=== PATIENT | male | born 1950 | race Caucasian/White ===

== ENCOUNTER → 2019-11-04 08:25 | Outpatient (BNVA) | payer MEDICARE, OTHER, SELFPAY | PROVIDERS: Family Provider Nurse Practitioner; Referring Provider Nurse Practitioner; Visit Provider Specialist | DX: M25.559 Pain in unspecified hip (principal) | CPT/HCPCS: 73502 ==

== ENCOUNTER 2019-11-09 06:00 | Outpatient (RCR) | payer MEDICARE, OTHER, SELFPAY | END 2019-11-09 23:59 | disposition home or self-care (01) | LOC: MPT 06:00 | PROVIDERS: PCP Nurse Practitioner; Referring Provider Specialist; Visit Provider Specialist | DX: M25.551 Pain in right hip (principal) | CPT/HCPCS: 97140; 97161; 97530 ==

== ENCOUNTER 2019-11-11 | Outpatient (RCR) | payer MEDICARE, OTHER, SELFPAY | END 2019-11-22 23:00 | disposition home or self-care (01) | LOC: MPT | PROVIDERS: PCP Nurse Practitioner; Referring Provider Specialist; Visit Provider Specialist | DX: M25.551 Pain in right hip (principal) | CPT/HCPCS: 97110; 97140 ==

== ENCOUNTER 2020-12-20 18:24 | Observation (INO) | payer MEDICARE, OTHER, SELFPAY ==
[2020-12-20 18:46] VITALS: BP 122/79; PULSE 92; RESP 16; TEMP 36.5; O2SAT 96; BMI 25.2
--- NOTE | 2020-12-20 19:30 | ECG_ITS ---
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 Measurements Intervals [place] Rate: 78 P: 49 DE: 227 QRS: -35 QRSD: 102 T: 116 QT: 377 QTc: 432 Interpretive Statements SINUS RHYTHM WITH FIRST DEGREE AV BLOCK WITH OCCASIONAL VENTRICULAR PREMATURE COMPLEXES MARKED LEFT AXIS DEVIATION [QRS AXIS < -30] INCOMPLETE RIGHT BUNDLE BRANCH BLOCK [90+ ms QRS DURATION, TERMINAL R IN V1/V2, 40+ ms S IN I/aVL/V4/V5/V6] LEFT VENTRICULAR HYPERTROPHY AND ST-T CHANGE [VOLTAGE CRITERIA PLUS ST/T ABNORMALITY] POSSIBLE SEPTAL MYOCARDIAL INFARCTION [30 ms Q WAVE IN V1/V2], PROBABLY OLD No previous ECG available for comparison Electronically Signed On 12-21-2020 7:33:30 CDT by Keren Pineda M.D. [id number]
--- NOTE | 2020-12-20 19:48 | ED_ITS ---
HPI - General Adult General: Chief complaint: Abdominal Pain Stated complaint: abd pain, constipation Time Seen by Provider: 12/20/20 19:09 History of Present Illness: HPI narrative: Patient is a 70-year-old male with a history of diabetes, hypertension, prior appendectomy presenting to the emergency room with complaints of pressure like midepigastric/lower chest pain that shoots the R upper backx2 days at rest. In addition, patient also he has had only 2 episodes of small hard stools. Patient denies any melena or hematochezia. Patient has been taking milk of magnesia without any significant improvement in stooling. He denies any nausea, vomiting, decrease in flatus, or changes in p.o. intake. Patient denies any shortness of breath, exertional chest pain, vomiting, diaphoresis over the last 2 days. No history of smoking, recent sympathomimetic use, mopped assist, recent mobilization, surgeries, personal or family history of DVT/PE. Onset:2 days ago Duration:2 days Location:home Severity:mild/moderate Review of Systems Narrative: Constitutional: No fever, no chills. HEENT: No vision changes CV: +lower chest pain, no palpitations PULM: no cough, no dyspnea. GI: + midepigastric abdominal pain, no N/V/D. +constipation : No dysuria MSKEL: No muscle pain SKIN: No new rashes, no lesions. NEURO: No headache, no focal weakness. HEME: No visible bruises PSYCH: Normal mood PFSH ED PFSH: Medical History (Updated 12/21/20 @ 03:19 by Alexandr Roberts MD) Diabetes mellitus High cholesterol History of high blood pressure Surgical History History of appendectomy History of tonsillectomy Social History Smoking and tobacco status: former smoker Alcohol intake: current Alcohol intake frequency: holidays/special occasions only Physical Exam Narrative: EXAM NARRATIVE: Head: Atraumatic Eyes: PERRL, conjunctiva without injection ENT: Mucous membrane moist NECK: Supple, ROM intact LUNGS: LCTAB, no crackles/rhonchi CV: RRR ABDOMEN: Soft, no tenderness palpation the midepigastric area, no Bangura sign, no right upper quadrant tenderness, no CVA tenderness, no suprapubic tenderness, no guarding no rebound tenderness EXTREMITY: Normal ROM SKIN: No rash or erythema NEURO: Awake and alert, no focal motor deficits PSYCH: Normal mood and affect Course Vital Signs: Vital signs: Vital Signs Temperature 97.7 F 12/20/20 18:46 Pulse Rate 72 12/21/20 02:06 Respiratory Rate 14 12/21/20 01:52 Blood Pressure 154/92 12/21/20 01:52 Pulse Oximetry 95 12/21/20 01:52 MDM - General Adult MDM Narrative: Medical decision making narrative: Patient is a 70-year-old male with history of diabetes, hypertension, remote appendectomy presenting to the emergency room with complaints of midepigastric abdominal/lower chest pain and constipation x2 days. On exam, patient has mild tenderness to palpation over the mid epigastric area. EKG showed NSR, rate of 78, first-degree AV block, QRS/QT within normal limit, occasional PVC, no signs of ST-T wave changes, poor R wave progression, no prior EKG for comparison Has a heart score 5 today (age - 2, risks factors - 1, story - 1, EKG of 1). Initial troponin within normal limit. I have had a shared decision-making with patient who tells me that he would like to come in to the hospital for cardiac evaluation since his last stress test was 3 years ago. S/p aspirin and nitroglycerin in the ED. Disposition: Admission Lab Data: Labs: Lab Results 12/20/20 12/20/20 12/20/20 Range/Units 19:37 19:37 19:37 WBC 8.5 (4.0-10.0) 10^3/ uL RBC 5.43 H (4.1-5.3) 10^6/u L Hgb 16.2 (11.7-16.6) g/dL Hct 48.1 (42.0-52.0) % MCV 88.6 (80-94) fL MCH 29.8 (28.0-34.0) pg MCHC 33.7 (30.0-36.0) g/dL RDW 13.1 (12.1-15.1) % Plt Count 170 (130-400) 10^3/c mm MPV 10.9 H (7.4-10.4) fL Neut % (Auto) 71.9 % Lymph % (Auto) 15.6 % [place] % (Auto) 10.5 % Eos % (Auto) 1.1 % Baso % (Auto) 0.5 % Neut # (Auto) 6.08 (1.8-7.7) 10^3/u L Lymph # (Auto) 1.3 (0.8-4.8) 10^3/u L [place] # (Auto) 0.9 (0.2-0.9) 10^3/u L Eos # (Auto) 0.1 (0.0-0.8) 10^3/u L Baso # (Auto) 0.0 (0.0-0.1) 10^3/u L Nucleated RBC % (a uto) 0 % Nucleated RBCs # 0.0 /100WBC D-Dimer 0.53 (0-0.59) ug/mIFE U Sodium 137 (136-145) mmol/L Potassium 3.8 (3.5-5.1) mmol/L Chloride 100 (98-107) mmol/L Carbon Dioxide 25 (22-29) mmol/L Anion Gap 15.8 (5-19) BUN 17 (8-23) mg/dL Creatinine 1.2 (0.7-1.2) mg/dL GFR Calculation Not Reportable Glucose 230 H (65-115) mg/dL Estimat Average Gl ucose Hemoglobin A1c (4.0-6.0) % Calculated Osmolal ity 293 (285-295) mOsm/k g Calcium 9.3 (8.5-10.5) mg/dL Total Bilirubin 0.7 (0.15-1.2) mg/dL AST 12 (0-40) U/L ALT 18 (0-41) U/L Alkaline Phosphata se 47 (40-130) IU/L Troponin T Baselin e (0-15) ng/L Troponin T 120 Min [place] (0-15) ng/L Delta Troponin T (0-10) ABS# Total Protein 7.4 (6.6-8.7) g/dL Albumin 4.2 (3.5-5.2) g/dL Globulin 3.2 (1.3-4.6) g/dL Triglycerides (0-150) mg/dL Cholesterol (0-200) mg/dL LDL Cholesterol, C alc (50-129) mg/dL HDL Cholesterol (60-100) mg/dL LDL/HDL Ratio (0.00-3.22) RATI O Cholesterol/HDL Ra sabina (1.0-5.00) mg/dL Lipase 102 H (13-60) U/L Urine Color (Yellow) Urine Appearance (CLEAR) Urine pH (5-7) Ur Specific Gravit y (1.005-1.030) Urine Protein (Negative) Urine Glucose (UA) (Normal) Urine Ketones (Negative) Urine Blood (Negative) Urine Nitrate (Negative) Urine Bilirubin (Negative) Urine Urobilinogen (Negative) mg/dL Ur Leukocyte Eleonora ase (Negative) SARS-CoV-2 Ag (Rap id) (Negative) 12/20/20 12/20/20 12/20/20 Range/Units 19:37 21:04 21:40 WBC (4.0-10.0) 10^3/ uL RBC (4.1-5.3) 10^6/u L Hgb (11.7-16.6) g/dL Hct (42.0-52.0) % MCV (80-94) fL MCH (28.0-34.0) pg MCHC (30.0-36.0) g/dL RDW (12.1-15.1) % Plt Count (130-400) 10^3/c mm MPV (7.4-10.4) fL Neut % (Auto) % Lymph % (Auto) % [place] % (Auto) % Eos % (Auto) % Baso % (Auto) % Neut # (Auto) (1.8-7.7) 10^3/u L Lymph # (Auto) (0.8-4.8) 10^3/u L [place] # (Auto) (0.2-0.9) 10^3/u L Eos # (Auto) (0.0-0.8) 10^3/u L Baso # (Auto) (0.0-0.1) 10^3/u L Nucleated RBC % (a uto) % Nucleated RBCs # /100WBC D-Dimer (0-0.59) ug/mIFE U Sodium (136-145) mmol/L Potassium (3.5-5.1) mmol/L Chloride (98-107) mmol/L Carbon Dioxide (22-29) mmol/L Anion Gap (5-19) BUN (8-23) mg/dL Creatinine (0.7-1.2) mg/dL GFR Calculation Glucose (65-115) mg/dL Estimat Average Gl ucose 189 Hemoglobin A1c 8.2 H (4.0-6.0) % Calculated Osmolal ity (285-295) mOsm/k g Calcium (8.5-10.5) mg/dL Total Bilirubin (0.15-1.2) mg/dL AST (0-40) U/L ALT (0-41) U/L Alkaline Phosphata se (40-130) IU/L Troponin T Baselin e 15 (0-15) ng/L Troponin T 120 Min [place] 15.79 H (0-15) ng/L Delta Troponin T 0.79 (0-10) ABS# Total Protein (6.6-8.7) g/dL Albumin (3.5-5.2) g/dL Globulin (1.3-4.6) g/dL Triglycerides (0-150) mg/dL Cholesterol (0-200) mg/dL LDL Cholesterol, C alc (50-129) mg/dL HDL Cholesterol (60-100) mg/dL LDL/HDL Ratio (0.00-3.22) RATI O Cholesterol/HDL Ra sabina (1.0-5.00) mg/dL Lipase (13-60) U/L Urine Color (Yellow) Urine Appearance (CLEAR) Urine pH (5-7) Ur Specific Gravit y (1.005-1.030) Urine Protein (Negative) Urine Glucose (UA) (Normal) Urine Ketones (Negative) Urine Blood (Negative) Urine Nitrate (Negative) Urine Bilirubin (Negative) Urine Urobilinogen (Negative) mg/dL Ur Leukocyte Eleonora ase (Negative) SARS-CoV-2 Ag (Rap id) (Negative) 12/20/20 12/20/20 12/21/20 Range/Units 21:40 22:55 00:33 WBC (4.0-10.0) 10^3/ uL RBC (4.1-5.3) 10^6/u L Hgb (11.7-16.6) g/dL Hct (42.0-52.0) % MCV (80-94) fL MCH (28.0-34.0) pg MCHC (30.0-36.0) g/dL RDW (12.1-15.1) % Plt Count (130-400) 10^3/c mm MPV (7.4-10.4) fL Neut % (Auto) % Lymph % (Auto) % [place] % (Auto) % Eos % (Auto) % Baso % (Auto) % Neut # (Auto) (1.8-7.7) 10^3/u L Lymph # (Auto) (0.8-4.8) 10^3/u L [place] # (Auto) (0.2-0.9) 10^3/u L Eos # (Auto) (0.0-0.8) 10^3/u L Baso # (Auto) (0.0-0.1) 10^3/u L Nucleated RBC % (a uto) % Nucleated RBCs # /100WBC D-Dimer (0-0.59) ug/mIFE U Sodium (136-145) mmol/L Potassium (3.5-5.1) mmol/L Chloride (98-107) mmol/L Carbon Dioxide (22-29) mmol/L Anion Gap (5-19) BUN (8-23) mg/dL Creatinine (0.7-1.2) mg/dL GFR Calculation Glucose (65-115) mg/dL Estimat Average Gl ucose Hemoglobin A1c (4.0-6.0) % Calculated Osmolal ity (285-295) mOsm/k g Calcium (8.5-10.5) mg/dL Total Bilirubin (0.15-1.2) mg/dL AST (0-40) U/L ALT (0-41) U/L Alkaline Phosphata se (40-130) IU/L Troponin T Baselin e (0-15) ng/L Troponin T 120 Min [place] (0-15) ng/L Delta Troponin T (0-10) ABS# Total Protein (6.6-8.7) g/dL Albumin (3.5-5.2) g/dL Globulin (1.3-4.6) g/dL Triglycerides 102 (0-150) mg/dL Cholesterol 136 (0-200) mg/dL LDL Cholesterol, C alc 72 (50-129) mg/dL HDL Cholesterol 44 L (60-100) mg/dL LDL/HDL Ratio 1.64 (0.00-3.22) RATI O Cholesterol/HDL Ra sabina 3.09 (1.0-5.00) mg/dL Lipase (13-60) U/L Urine Color Yellow (Yellow) Urine Appearance Clear (CLEAR) Urine pH 5 (5-7) Ur Specific Gravit y 1.015 (1.005-1.030) Urine Protein Neg (Negative) Urine Glucose (UA) 4+ H (Normal) Urine Ketones Negative (Negative) Urine Blood Neg (Negative) Urine Nitrate Negative (Negative) Urine Bilirubin Neg (Negative) Urine Urobilinogen Norm (Negative) mg/dL Ur Leukocyte Eleonora ase Negative (Negative) SARS-CoV-2 Ag (Rap id) Negative (Negative) Discharge Plan Discharge Patient Disposition: Admitted As Inpatient Admit Provider: Vivian Ahumada Clinical Impression: Chest pain, Constipation Condition: Stable Coding Level of Care Code ED [employer] for Lakia Sommer
[2020-12-20 19:59] LABS: Basophils % 0.5 %; Eosinophils # 0.1 10^3/uL (0.0-0.8); Eosinophils % 1.1 %; Hematocrit 48.1 % (42.0-52.0); Hemoglobin 16.2 g/dL (11.7-16.6); Lymphocytes # 1.3 10^3/uL (0.8-4.8); Lymphocytes % 15.6 %; Mean Corpuscular HGB Conc 33.7 g/dL (30.0-36.0); Mean Corpuscular Hemoglobin 29.8 pg (28.0-34.0); Mean Corpuscular Volume 88.6 fL (80-94); Mean Platelet Volume 10.9 fL (7.4-10.4); Monocytes # 0.9 10^3/uL (0.2-0.9); Monocytes % 10.5 %; Neutrophils # 6.08 10^3/uL (1.8-7.7); Neutrophils % 71.9 %; Nucleated Red Blood Cells % 0 %; Platelet Count 170 10^3/cmm (130-400); Red Blood Count 5.43 10^6/uL (4.1-5.3); Red Cell Distribution Width 13.1 % (12.1-15.1); White Blood Count 8.5 10^3/uL (4.0-10.0)
[2020-12-20 20:16] LABS: Alanine Aminotransferase 18 U/L (0-41); Albumin Level 4.2 g/dL (3.5-5.2); Alkaline Phosphatase 47 IU/L (40-130); Anion Gap 15.8 (5-19); Aspartate Amino Transferase 12 U/L (0-40); Blood Urea Nitrogen 17 mg/dL (8-23); Calcium 9.3 mg/dL (8.5-10.5); Carbon Dioxide 25 mmol/L (22-29); Chloride 100 mmol/L (98-107); Globulin 3.2 g/dL (1.3-4.6); Glucose 230 mg/dL (65-115); Lipase 102 U/L (13-60); Osmolality Calculated 293 mOsm/kg (285-295); Potassium 3.8 mmol/L (3.5-5.1); Sodium 137 mmol/L (136-145); Total Bilirubin 0.7 mg/dL (0.15-1.2); Total Protein 7.4 g/dL (6.6-8.7)
--- NOTE | 2020-12-20 20:26 | XRR_ITS ---
PROCEDURE INFORMATION: Exam: XR Chest Exam date and time: 12/20/2020 8:26 PM Age: 70 years old Clinical indication: Pain; Other: Epigastric; Additional info: Chest pain, epigastric pain. Ex smoker. TECHNIQUE: Imaging protocol: XR of the chest. Views: 1 view. COMPARISON: CR Chest 2 views* [id number] 05/08/2017 11:26 AM FINDINGS: Lungs: Unremarkable. No consolidation. Pleural spaces: Unremarkable. No pleural effusion. No pneumothorax. Heart/Mediastinum: Unremarkable. No cardiomegaly. Bones/joints: Unremarkable. XR/XR chest 1V portable [id number] IMPRESSION: No acute findings.
[2020-12-20] MEDS: alum-mag-hydroxide-sime 30 mL UDC PO (20:36)
[2020-12-20] MEDS: aspirin 81 mg Chew Tablet 324 MG PO (20:36)
[2020-12-20] MEDS: famotidine 20 mg Tablet PO (20:37)
[2020-12-20] MEDS: nitroglycerin 0.4 mg sublingual Tablet SUBLINGUAL (20:39)
[2020-12-20 20:40] VITALS: BP 165/102; PULSE 60; RESP 16; O2SAT 99
[2020-12-20 21:17] LABS: D Dimer 0.53 ug/mIFEU (0-0.59)
--- NOTE | 2020-12-20 21:30 | ECG_ITS ---
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 Measurements Intervals [place] Rate: 68 P: 62 OR: 238 QRS: -34 QRSD: 101 T: 126 QT: 380 QTc: 406 Interpretive Statements SINUS RHYTHM WITH FIRST DEGREE AV BLOCK WITH OCCASIONAL VENTRICULAR PREMATURE COMPLEXES MARKED LEFT AXIS DEVIATION [QRS AXIS < -30] INCOMPLETE RIGHT BUNDLE BRANCH BLOCK [90+ ms QRS DURATION, TERMINAL R IN V1/V2, 40+ ms S IN I/aVL/V4/V5/V6] LEFT VENTRICULAR HYPERTROPHY AND ST-T CHANGE [VOLTAGE CRITERIA PLUS ST/T ABNORMALITY] POSSIBLE SEPTAL MYOCARDIAL INFARCTION [30 ms Q WAVE IN V1/V2], PROBABLY OLD Compared to ECG 12/20/2020 19:35:51 No significant changes Electronically Signed On 12-21-2020 9:59:51 CDT by Keren Pineda M.D. [id number]
[2020-12-20 21:43] LABS: Troponin(5th) Baseline 15 ng/L (0-15)
[2020-12-20] MEDS: acetaminophen 500 mg Tablet PO (21:49)
[2020-12-20 21:54] VITALS: BP 141/75; PULSE 62; RESP 16; O2SAT 96
[2020-12-20 22:20] LABS: Troponin 5 2HR 15.79 ng/L (0-15); Troponin 5 2HR Delta 0.79 ABS# (0-10)
--- NOTE | 2020-12-20 22:38 | ECG_ITS ---
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 Interpretive Statements NAME OF STUDY: LEXISCAN SESTAMIBI STRESS TEST INDICATION: Chest Pain; Angina PROCEDURE: At the baseline, the blood pressure was 150/90 mmHg, oxygen saturation 96% with a heart rate of 80 bpm. The electrocardiogram showed normal sinus rhythm, normal axis. Possible old septal infarct. Nonspecific ST-T wave changes in lead I and aVL. The Lexiscan was infused over a period of 20 seconds. A total of 0.4 milligrams of Lexiscan was infused. The stress phase was continued for a total of 5 minutes. Heart rate at the end of the stress phase was 86 bpm, oxygen saturation 95% with a blood pressure 135/73 mmHg. The EKG at the peak infusion revealed sinus rhythm with isolated PVCs. The study was terminated due to protocol completion. Sestamibi was injected 20 seconds after the Lexiscan infusion. Blood pressure at the end of the recovery phase was 140/74 mmHg, oxygen saturation 95% with a heart rate of 82 beats per minute. CONCLUSION: 1. No significant EKG changes with the LexiScan infusion 2. No LexiScan induced chest pain. Frequent isolated PVCs noted during Lexiscan infusion and in recovery. 3. Baseline hypertension with normal blood pressure and heart rate response. 4. Sestamibi/sestamibi perfusion scan pending; see separate report. Electronically Signed On 12-21-2020 13:39:26 CDT by Keren Pineda M.D. [id number]
[2020-12-20] MEDS: zolpidem 5 mg Tablet 10 MG PO (22:52)
[2020-12-20 22:53] VITALS: BP 151/87; PULSE 62; RESP 14; O2SAT 95
[2020-12-20 22:59] LABS: Chol HDL Ratio 3.09 mg/dL (1.0-5.00); Cholesterol 136 mg/dL (0-200); HDL Cholesterol 44 mg/dL (60-100); LDL Cholesterol Calculated 72 mg/dL (50-129); LDL HDL Ratio 1.64 RATIO (0.00-3.22); Triglycerides 102 mg/dL (0-150)
[2020-12-20 22:59] LABS: Estmated Average Glucose 189; Hemoglobin A1C 8.2 % (4.0-6.0)
[2020-12-20 23:15] LABS: Add Urine Microscopic? NO; Charge for UA Resulting for Rev
[2020-12-20 23:24] LABS: Bilirubin Urine Neg (Negative); Blood Urine Neg (Negative); Glucose Urine UA 4+ (Normal); Ketones Urine Negative (Negative); Leukocyte Esterase Urine Negative (Negative); Nitrate Urine Negative (Negative); Protein Urine Neg (Negative); Specific Gravity, Urine 1.015 (1.005-1.030); Urine Appearance Clear (CLEAR); Urine Color Yellow (Yellow); Urobilinogen Urine Norm (Negative); pH Urine 5 (5-7)
[2020-12-21] VITALS (11 sets, daily range): BP systolic 132–183; BP diastolic 70–92; PULSE 56–97; RESP 12–18; TEMP 36.5–36.7; O2SAT 94–96; BMI 25.2
[2020-12-21 00:58] LABS: SARS Covid-2 Antigen Negative (Negative)
[2020-12-21 03:36] LABS: Basophils # 0.1 10^3/uL (0.0-0.1); Basophils % 0.5 %; Eosinophils # 0.2 10^3/uL (0.0-0.8); Eosinophils % 1.6 %; Hematocrit 49.6 % (42.0-52.0); Hemoglobin 16.2 g/dL (11.7-16.6); Lymphocytes # 1.6 10^3/uL (0.8-4.8); Lymphocytes % 16.6 %; Mean Corpuscular HGB Conc 32.7 g/dL (30.0-36.0); Mean Corpuscular Hemoglobin 29.6 pg (28.0-34.0); Mean Corpuscular Volume 90.5 fL (80-94); Mean Platelet Volume 10.6 fL (7.4-10.4); Monocytes # 1.1 10^3/uL (0.2-0.9); Monocytes % 11.1 %; Neutrophils # 6.65 10^3/uL (1.8-7.7); Nucleated Red Blood Cells % 0 %; Platelet Count 155 10^3/cmm (130-400); Red Blood Count 5.48 10^6/uL (4.1-5.3); Red Cell Distribution Width 13.1 % (12.1-15.1); White Blood Count 9.5 10^3/uL (4.0-10.0)
[2020-12-21 03:59] LABS: Anion Gap 15.2 (5-19); Blood Urea Nitrogen 18 mg/dL (8-23); Calcium 9.6 mg/dL (8.5-10.5); Carbon Dioxide 24 mmol/L (22-29); Chloride 102 mmol/L (98-107); Glucose 143 mg/dL (65-115); Osmolality Calculated 288 mOsm/kg (285-295); Potassium 4.2 mmol/L (3.5-5.1); Sodium 137 mmol/L (136-145)
--- NOTE | 2020-12-21 04:33 | P.HP_ITS ---
Providers/Chief Complaint Admitting Physician: Vivian Ahumada MD Primary Care Provider: Odalys Haney NP Chief Complaint: Abd Pain, No BM History of Present Illness Moustapha Marks is a 70 year old male With past medical history of diabetes mellitus, hypertension, hyperlipidemia migraine presented to the ER today with chief complaints of abdominal pain, described in the epigastric region, radiating into the right side of the chest and shoulder blade. Patient has not noticed any obvious exacerbating or relieving factors. Feels it is a dull aching kind of pain which is intermittent. Initially he attributed his symptoms to being constipated. He is passing flatus. He has an appetite. Denies any nausea vomiting. Denies any associated symptoms such as diaphoresis, dyspnea, syncope. He has had a stress test 3 years ago at [facility] in [place] which was reportedly normal. Denies any past history of CAD. Review of Systems General: Reports: 10 or more systems reviewed and unremarkable except in HPI and below Const: Denies: fever(s), chills or body aches Eyes: Denies: change in vision, blurry vision or photophobia ENMT: Reports: hoarseness; Denies: throat pain, enlarged tonsils, odynophagia or nasal congestion Card: Denies: chest pain, palpitations, irregular heart rhythm, edema, swelling of feet/ankles, lightheadedness, pre-syncope, dyspnea on exertion or orthopnea Resp: Denies: dyspnea, productive cough, non-productive cough, wheezing, stridor, pain on inspiration, change in phlegm color, hemoptysis or chest congestion GI: Denies: abdominal pain, nausea, vomiting, hematemesis, coffee ground emesis, dysphagia, heartburn, diarrhea, constipation, GI cramping, change in stool character, hematochezia or melena : Denies: flank pain, dysuria, urinary frequency, urinary urgency, urinary hesitancy or hematuria Musc: Denies: neck pain, back pain, extremity pain, joint swelling, joint warmth or deformity Neuro: Denies: headache(s), numbness in extremities, weakness in extremities, sensory changes, difficulty walking, frequent falls, dizziness, vertigo, behavioral changes, Slurred speech present or seizure-like activity Psych: Denies: anxiety, depression, suicidal ideation or homicidal ideation Endo: Denies: polyuria, polydipsia, tired all the time, cold intolerance or hot flashes Wan/Lymph: Denies: easy bruising or easy bleeding Medications/Allergies Home Medications Medication Instructions Recorded Confirmed Last Taken Type aspirin 81 mg tablet,delayed 81 mg PO DAILY 11/04/19 12/20/20 12/20/20 History release canagliflozin 100 mg tablet 100 mg PO DAILY 11/04/19 12/20/20 12/20/20 History cetirizine 10 mg capsule 10 mg PO DAILY PRN 11/04/19 12/20/20 Unknown History cholecalciferol (vitamin D3) 50 50 mcg PO DAILY 11/04/19 12/20/20 12/19/20 History mcg (2,000 unit) capsule cyanocobalamin (vitamin B-12) 3,000 mcg PO DAILY 11/04/19 12/20/20 12/20/20 History 3,000 mcg capsule cyclobenzaprine 5 mg tablet 5 mg PO TID PRN 11/04/19 12/20/20 Unknown History diphenhydramine HCl 25 mg tablet 25 mg PO TID PRN 11/04/19 12/20/20 Unknown History fenofibrate 160 mg tablet 160 mg PO DAILY 11/04/19 12/20/20 12/19/20 History glipizide 10 mg tablet 10 mg PO DAILY 11/04/19 12/20/20 12/19/20 History olmesartan 40 mg tablet 40 mg PO DAILY 11/04/19 12/20/20 12/20/20 History pantoprazole 40 mg tablet,delayed 40 mg PO DAILY 11/04/19 12/20/20 12/20/20 History release sitagliptin 100 mg tablet 100 mg PO DAILY 11/04/19 12/20/20 12/20/20 History sumatriptan succinate 100 mg tablet 100 mg PO Q2H PRN 11/04/19 12/20/20 Unknown History tamsulosin 0.4 mg capsule 0.4 mg PO DAILY 11/04/19 12/20/20 12/20/20 History triamcinolone acetonide 55 mcg 1 spray INTRANASAL DAILY 11/04/19 12/20/20 Unknown History nasal spray aerosol zolpidem 5 mg tablet 10 mg PO BEDTIME MDD see pharmacy 11/04/19 12/20/20 12/19/20 History comment glipizide 2.5 mg PO DAILY MDD see pharmacy 12/20/20 12/20/20 12/20/20 History comment rosuvastatin [Crestor] 20 mg PO DAILY 12/20/20 12/20/20 12/19/20 History Allergies Allergy/AdvReac Type Severity Reaction Status Date / Time clindamycin Allergy itch Verified 11/04/19 08:38 erythromycin base Allergy Unknown Verified 11/04/19 08:38 niacin Allergy Unknown Verified 11/04/19 08:38 oxycodone Allergy Unknown Verified 11/04/19 08:38 propoxyphene [From Darvon] Allergy Unknown Verified 11/04/19 08:38 PFSH Acute PFSH: Medical History Diabetes mellitus High cholesterol History of high blood pressure Surgical History (Updated 12/21/20 @ 04:40 by Vivian Ahumada MD) H/O sinus surgery History of appendectomy History of tonsillectomy Social History Smoking and tobacco status: former smoker Alcohol intake: current Alcohol intake frequency: holidays/special occasions only Vitals/I&O/Wt Last Vital Signs Temp 97.8 F 12/21/20 02:35 Pulse 67 12/21/20 02:35 Resp 18 12/21/20 02:35 BP 183/86 12/21/20 02:35 Pulse Ox 95 12/21/20 02:35 Weight last 48 hrs Weight 93.894 kg Weight 93.894 kg Physical Exam Narrative: EXAM NARRATIVE: General: No acute distress, AO x3 HEENT: PERRLA, pupils bilaterally equal and reactive, pallors not present Chest: Normal vesicular breath sounds, no added sounds, equal good air entry bilaterally CVS: S1-S2 regular, no murmurs, no tachycardia, no gallops, no rubs Abdomen: Soft, nondistended, mild TTP over epigastric region, no organomegaly, bowel sounds present Neuro: No focal deficits, no facial deformity, AO x3, power 5/5 in all limbs Data : 12/21/20 03:10 12/21/20 03:10 A&P Assessment and plan (1) Chest pain: Atypical chest pain, improved with sublingual nitro in the ER EKG without acute ST-T wave changes, left axis deviation and signs of LVH. Troponin baseline 15, 2-hour without significant delta. Pending 6-hour delta. Multiple risk factors for CAD including diabetes mellitus, hypertension, dyslipidemia Concern for underlying unstable angina as a cause of patient's chest and pain, will order stress test for the a.m. Further course dependent on results of stress test Alternate differentials for pain include peptic ulcer disease Status: Acute Additional A&P Information Diabetes mellitus: Can continue home oral hypoglycemic agents for now Hypertension: Currently well controlled, continue olmesartan Attestations Medical Necessity Statement*: Observation admission for stress test in the morning, n.p.o. for the same Coding Level of Care Code Acute [employer] for Lakia Sommer Diagnoses Chest pain R07.9
[2020-12-21 05:03] LABS: Troponin T (5th) Once 16 ng/L (0-15)
--- NOTE | 2020-12-21 05:22 | PC.NURSE ---
Shift Note Frequent safety and comfort rounds continue. Orders and/or nursing care completed as indicated. Patient monitored for response to intervention and treatment(s). Education provided includes pre-procedure prep foe stress test, npo status except for water. Patient verbalized understanding. Will continue to monitor.
[2020-12-21] MEDS: regadenoson 0.4 Mg/5 ml Syringe IVP (08:02)
[2020-12-21] MEDS: sitagliptin 100 mg Tablet PO (10:21)
[2020-12-21] MEDS: losartan 50 mg Tablet 100 MG PO (10:21)
[2020-12-21] MEDS: aspirin 81 mg EC Tablet PO (10:21)
[2020-12-21] MEDS: tamsulosin 0.4 mg Capsule PO (10:22)
--- NOTE | 2020-12-21 13:54 | PM.DCS ---
Discharge Providers Date of Admission: 12/21/20 01:36 Date of Discharge: December 21, 2020 Attending Provider at Admission: Vivian Ahumada MD Attending Provider at Discharge: Gladys Medina MD Primary Care Provider: Odalys Haney NP Diagnoses at Discharge Discharge Diagnosis (1) Chest pain: Status: Acute Reason for Visit Reason for Visit: Abd Pain, No BM Hospital Course Hospital Course HPI: Moustapha Marks is a 70 year old male With past medical history of diabetes mellitus, hypertension, hyperlipidemia migraine presented to the ER today with chief complaints of abdominal pain, described in the epigastric region, radiating into the right side of the chest and shoulder blade. Patient has not noticed any obvious exacerbating or relieving factors. Feels it is a dull aching kind of pain which is intermittent. Initially he attributed his symptoms to being constipated. He is passing flatus. He has an appetite. Denies any nausea vomiting. Denies any associated symptoms such as diaphoresis, dyspnea, syncope. He has had a stress test 3 years ago at [facility] in [place] which was reportedly normal. Denies any past history of CAD. Hospital course Patient was admitted for evaluation of atypical chest pain, considering moderate risk factors for coronary disease cardiac stress test was pursued. Cardiac stress test was read by Dr. Pineda as unremarkable. He will be discharged today without addition or change of his medications. He received senna S for his constipation during hospitalization. He never experienced recurrence of his chest pain, or abdominal pain. He stayed hemodynamically stable. He was asked to follow-up with his PCP Lexiscan stress test PERFUSION FINDINGS Medium size perfusion abnormality of mild severity of basal to apical inferior, basal to mid inferolateral, basal to mid inferoseptal and apical abbott on rest images with improved tracer uptake in inferior septal and lateral abbott on stress images. This is suggestive of attenuation artifact. FUNCTIONAL RESULTS (calculated via Gated SPECT) Stress Image LV EF (%): 67 Stress EDV (mL):88 TID: 1.08 Stress ESV (mL):29 FUNCTIONAL FINDINGS: The left ventricle is normal in size. Transient Ischemia Dilatation of 1.1. There is normal left ventricular systolic function. The left ventricular ejection fraction is normal with a value of 67%. There is normal left ventricular wall thickening with no regional wall motion abnormality. Normal end-diastolic end-systolic volume. IMPRESSIONS 1. Myocardial perfusion imaging is normal. Attenuation artifact noted in inferior inferoseptal and inferolateral abbott. 2. Overall left ventricular systolic function is normal without regional wall motion abnormalities, LVEF=67%. 3. No coronary ischemia based on the study. Blood pressure at the end of the recovery phase was 140/74 mmHg, oxygen saturation 95% with a heart rate of 82 beats per minute. CONCLUSION: 1. No significant EKG changes with the LexiScan infusion 2. No LexiScan induced chest pain. Frequent isolated PVCs noted during Lexiscan infusion and in recovery. 3. Baseline hypertension with normal blood pressure and heart rate response. 4. Sestamibi/sestamibi perfusion scan pending; see separate report. Physical Exam Narrative: EXAM NARRATIVE: General: No acute distress, AO x3 HEENT: PERRLA, pupils bilaterally equal and reactive, pallors not present Chest: Normal vesicular breath sounds, no added sounds, equal good air entry bilaterally CVS: S1-S2 regular, no murmurs, no tachycardia, no gallops, no rubs Abdomen: Soft, nondistended, mild TTP over epigastric region, no organomegaly, bowel sounds present Neuro: No focal deficits, no facial deformity, AO x3, power 5/5 in all limbs Discharge Data Data Completed and Pending: Completed Studies During Hospitalization Category Date Time Status Sestamibi Stress Test Request Kirt ne Exams 12/20/20 22:38 Completed XR chest 1V jeffrey ble [id number] Stat Exams 12/20/20 20:26 Completed NM michelle perf SPECT r/s* [id number] Routin e Nuc Med 12/21/20 22:38 Completed Labs from last 24 hours 12/21/20 12/21/20 12/21/20 03:10 03:10 03:10 WBC 9.5 RBC 5.48 H Hgb 16.2 Hct 49.6 MCV 90.5 MCH 29.6 MCHC 32.7 RDW 13.1 Plt Count 155 MPV 10.6 H Neut % (Auto) 70.0 Lymph % (Auto) 16.6 [place] % (Auto) 11.1 Eos % (Auto) 1.6 Baso % (Auto) 0.5 Neut # (Auto) 6.65 Lymph # (Auto) 1.6 [place] # (Auto) 1.1 H Eos # (Auto) 0.2 Baso # (Auto) 0.1 Nucleated RBC % (a uto) 0 Nucleated RBCs # 0.0 D-Dimer Sodium 137 Potassium 4.2 Chloride 102 Carbon Dioxide 24 Anion Gap 15.2 BUN 18 Creatinine 1.0 GFR Calculation Not Reportable Glucose 143 H Estimat Average Gl ucose Hemoglobin A1c Calculated Osmolal ity 288 Calcium 9.6 Total Bilirubin AST ALT Alkaline Phosphata se Troponin T Gen 5 n g/L 16 H Troponin T Baselin e Troponin T 120 Min [place] Troponin T Total Protein Albumin Globulin Triglycerides Cholesterol LDL Cholesterol, C alc HDL Cholesterol LDL/HDL Ratio Cholesterol/HDL Ra sabina Lipase Urine Color Urine Appearance Urine pH Ur Specific Gravit y Urine Protein Urine Glucose (UA) Urine Ketones Urine Blood Urine Nitrate Urine Bilirubin Urine Urobilinogen Ur Leukocyte Eleonora ase SARS-CoV-2 Ag (Rap id) 12/21/20 12/20/20 12/20/20 00:33 22:55 21:40 WBC RBC Hgb Hct MCV MCH MCHC RDW Plt Count MPV Neut % (Auto) Lymph % (Auto) [place] % (Auto) Eos % (Auto) Baso % (Auto) Neut # (Auto) Lymph # (Auto) [place] # (Auto) Eos # (Auto) Baso # (Auto) Nucleated RBC % (a uto) Nucleated RBCs # D-Dimer Sodium Potassium Chloride Carbon Dioxide Anion Gap BUN Creatinine GFR Calculation Glucose Estimat Average Gl ucose Hemoglobin A1c Calculated Osmolal ity Calcium Total Bilirubin AST ALT Alkaline Phosphata se Troponin T Gen 5 n g/L Troponin T Baselin e Troponin T 120 Min [place] Troponin T Total Protein Albumin Globulin Triglycerides 102 Cholesterol 136 LDL Cholesterol, C alc 72 HDL Cholesterol 44 L LDL/HDL Ratio 1.64 Cholesterol/HDL Ra sabina 3.09 Lipase Urine Color Yellow Urine Appearance Clear Urine pH 5 Ur Specific Gravit y 1.015 Urine Protein Neg Urine Glucose (UA) 4+ H Urine Ketones Negative Urine Blood Neg Urine Nitrate Negative Urine Bilirubin Neg Urine Urobilinogen Norm Ur Leukocyte Eleonora ase Negative SARS-CoV-2 Ag (Rap id) Negative 12/20/20 12/20/20 12/20/20 21:40 21:04 19:37 WBC RBC Hgb Hct MCV MCH MCHC RDW Plt Count MPV Neut % (Auto) Lymph % (Auto) [place] % (Auto) Eos % (Auto) Baso % (Auto) Neut # (Auto) Lymph # (Auto) [place] # (Auto) Eos # (Auto) Baso # (Auto) Nucleated RBC % (a uto) Nucleated RBCs # D-Dimer Sodium Potassium Chloride Carbon Dioxide Anion Gap BUN Creatinine GFR Calculation Glucose Estimat Average Gl ucose 189 Hemoglobin A1c 8.2 H Calculated Osmolal ity Calcium Total Bilirubin AST ALT Alkaline Phosphata se Troponin T Gen 5 n g/L Troponin T Baselin e 15 Troponin T 120 Min [place] 15.79 H Delta Troponin T 0.79 Total Protein Albumin Globulin Triglycerides Cholesterol LDL Cholesterol, C alc HDL Cholesterol LDL/HDL Ratio Cholesterol/HDL Ra sabina Lipase Urine Color Urine Appearance Urine pH Ur Specific Gravit y Urine Protein Urine Glucose (UA) Urine Ketones Urine Blood Urine Nitrate Urine Bilirubin Urine Urobilinogen Ur Leukocyte Eleonora ase SARS-CoV-2 Ag (Rap id) 12/20/20 12/20/20 12/20/20 19:37 19:37 19:37 WBC 8.5 RBC 5.43 H Hgb 16.2 Hct 48.1 MCV 88.6 MCH 29.8 MCHC 33.7 RDW 13.1 Plt Count 170 MPV 10.9 H Neut % (Auto) 71.9 Lymph % (Auto) 15.6 [place] % (Auto) 10.5 Eos % (Auto) 1.1 Baso % (Auto) 0.5 Neut # (Auto) 6.08 Lymph # (Auto) 1.3 [place] # (Auto) 0.9 Eos # (Auto) 0.1 Baso # (Auto) 0.0 Nucleated RBC % (a uto) 0 Nucleated RBCs # 0.0 D-Dimer 0.53 Sodium 137 Potassium 3.8 Chloride 100 Carbon Dioxide 25 Anion Gap 15.8 BUN 17 Creatinine 1.2 GFR Calculation Not Reportable Glucose 230 H Estimat Average Gl ucose Hemoglobin A1c Calculated Osmolal ity 293 Calcium 9.3 Total Bilirubin 0.7 AST 12 ALT 18 Alkaline Phosphata se 47 Troponin T Gen 5 n g/L Troponin T Baselin e Troponin T 120 [address] [place] Troponin T Total Protein 7.4 Albumin 4.2 Globulin 3.2 Triglycerides Cholesterol LDL Cholesterol, C alc HDL Cholesterol LDL/HDL Ratio Cholesterol/HDL Ra sabina Lipase 102 H Urine Color Urine Appearance Urine pH Ur Specific Gravit y Urine Protein Urine Glucose (UA) Urine Ketones Urine Blood Urine Nitrate Urine Bilirubin Urine Urobilinogen Ur Leukocyte Eleonora ase SARS-CoV-2 Ag (Rap id) Vitals: Last Vital Signs Temp 97.7 F 12/21/20 13:23 Pulse 71 12/21/20 13:23 Resp 16 12/21/20 13:23 BP 142/76 12/21/20 13:23 Pulse Ox 94 12/21/20 13:23 Discharge Plan Discharge Patient Disposition: Home Condition: Stable Prescriptions: Continued pantoprazole 40 mg tablet,delayed release (DR/EC) 40 mg PO DAILY RF: 0 tamsulosin 0.4 mg capsule 0.4 mg PO DAILY RF: 0 aspirin 81 mg tablet,delayed release (DR/EC) 81 mg PO DAILY RF: 0 olmesartan [Benicar] 40 mg tablet 40 mg PO DAILY RF: 0 triamcinolone acetonide 55 mcg aerosol,spray 1 spray INTRANASAL DAILY RF: 0 sumatriptan succinate 100 mg tablet 100 mg PO Q2H PRN (Reason: Migraine Headache) RF: 0 cetirizine 10 mg capsule 10 mg PO DAILY PRN (Reason: Allergy Symptoms) RF: 0 Januvia 100 mg tablet 100 mg PO DAILY RF: 0 glipizide 10 mg tablet 10 mg PO DAILY RF: 0 diphenhydramine HCl [Benadryl Allergy] 25 mg tablet 25 mg PO TID PRN (Reason: Allergic Reaction) RF: 0 cyanocobalamin (vitamin B-12) 3,000 mcg capsule 3,000 mcg PO DAILY RF: 0 cholecalciferol (vitamin D3) 50 mcg (2,000 unit) capsule 50 mcg PO DAILY RF: 0 Invokana 100 mg tablet 100 mg PO DAILY RF: 0 cyclobenzaprine 5 mg tablet 5 mg PO TID PRN (Reason: Muscle Pain) RF: 0 zolpidem [Ambien] 5 mg tablet 10 mg PO BEDTIME MDD see pharmacy comment RF: 0 fenofibrate 160 mg tablet 160 mg PO DAILY RF: 0 glipizide 2.5 mg Tablet Extended Release 24hr 2.5 mg PO DAILY MDD see pharmacy comment RF: 0 Crestor 20 mg Tablet 20 mg PO DAILY RF: 0 Discharge Orders: Discharge Order (Routine); Ordered 12/21/20 Ordered By: Gladys Medina Referrals: Odalys Haney NP [Primary Care Provider] - Discharge Diet: Cardiac Discharge Activity: Resume usual activity Patient Instructions: Opioid Safety Activity Restrictions/Additional Instructions: Your cardiac stress test is unremarkable, you can follow-up with your PCP Discharge Attestations Time Spent in Discharge Care*: less than 30 min Quality Metrics Clinical Quality Measures During this hospital stay, did patient experience: None Coding Level of Care Code Acute Chg FW DC note Diagnoses Chest pain R07.9
--- NOTE | 2020-12-21 22:38 | NMCV_ITS ---
NM michelle perf SPECT r/s* [id number] Moustapha Marks Age: 70 Gender: M : 1950 Exam Date: 12/21/2020 07:06 Ordering Phys: Vivian Ahumada MD Technologist: JENNIFER Burdick Exam Location: [facility] Indications: ABD PAIN, NO BM STRESS TEST Please see separate stress test report in [facility] for full findings IMAGE PROTOCOL Rest/Stress 1 Lexiscan Day Radiopharmaceutical Dose (mCi) Administration Site Administered by Rest: Tc-99m 11.0 IV JENNIFER Mckeon Sestamibi Stress:Tc-99m 32.3 IV JENNIFER Burdick Sestamibi Rest: 21-Dec-2020 60 Discovery 630 Stress: 21-Dec-2020 30 Discovery 630 0.4mg Lexiscan. Images obtained in supine and prone position. SPECT RESULTS Technical Quality: Excellent Raw Data Analysis: Normal Image Corrections: No attenuation or motion correction applied Summed Stress Score: 2 Summed Rest Score: 13 Summed Difference Score: 0 PERFUSION FINDINGS Medium size perfusion abnormality of mild severity of basal to apical inferior, basal to mid inferolateral, basal to mid inferoseptal and apical abbott on rest images with improved tracer uptake in inferior septal and lateral abbott on stress images. This is suggestive of attenuation artifact. FUNCTIONAL RESULTS (calculated via Gated SPECT) Stress Image LV EF (%): 67 Stress EDV (mL):88 TID: 1.08 Stress ESV (mL):29 FUNCTIONAL FINDINGS: The left ventricle is normal in size. Transient Ischemia Dilatation of 1.1. There is normal left ventricular systolic function. The left ventricular ejection fraction is normal with a value of 67%. There is normal left ventricular wall thickening with no regional wall motion abnormality. Normal end-diastolic end-systolic volume. IMPRESSIONS 1. Myocardial perfusion imaging is normal. Attenuation artifact noted in inferior inferoseptal and inferolateral abbott. 2. Overall left ventricular systolic function is normal without regional wall motion abnormalities, LVEF=67%. 3. No coronary ischemia based on the study. Keren Pineda MD (Electronically Signed) Final Date: 21 December 2020 13:35 S
== END 2020-12-21 14:47 | disposition home or self-care (01) ==
LOC: ER 22:27 → MEDSURG 12-21 01:38
PROVIDERS: Admitting Provider Student in an Organized Health Care Education/Training Program; Emergency Provider Emergency Medicine; PCP Nurse Practitioner; Visit Provider Internal Medicine
DX: R07.89 Other chest pain (principal); E11.9 Type 2 diabetes mellitus without complications; I10 Essential (primary) hypertension; E78.5 Hyperlipidemia, unspecified; Z79.82 Long term (current) use of aspirin; Z87.891 Personal history of nicotine dependence; I44.0 Atrioventricular block, first degree
CPT/HCPCS: 36415; 71045; 78452; 80048; 80053; 80061; 81003; 83036; 83690; 84484; 85025; 85378; 87426; 93005; 93017; 99285; A9500; G0378; J2785

== ENCOUNTER → 2021-01-05 08:14 | Outpatient (BNVA) | payer MEDICARE, OTHER, SELFPAY | PROVIDERS: PCP Nurse Practitioner; Referring Provider Nurse Practitioner; Visit Provider Anesthesiology Pain Medicine | DX: M47.816 Spondylosis without myelopathy or radiculopathy, lumbar region (principal); M54.16 Radiculopathy, lumbar region; M79.605 Pain in left leg; Z79.891 Long term (current) use of opiate analgesic; Z87.891 Personal history of nicotine dependence | CPT/HCPCS: 99204 ==

== ENCOUNTER 2021-01-12 08:25 | Outpatient (CLI) | payer MEDICARE, OTHER, SELFPAY ==
--- NOTE | 2021-01-12 08:52 | XR_ITS ---
WS: [id number] LUMBAR SPINE FLEXION AND EXTENSION TECHNIQUE: 3 views of the lumbar spine: Lateral neutral, flexion, and extension views. CLINICAL INFORMATION: M47.816 - Spondylosis without myelopathy or radiculopathy... COMPARISON: None. FINDINGS: Trace retrolisthesis L3 on L4 and L4 on L5 neutral position. Mild disc space narrowing L4-L5 and L5-S 1. No instability on flexion-extension. Moderate facet arthropathy L5-S1. XR/XR lumbar spine f/e only [id number] IMPRESSION: No instability on flexion-extension.
--- NOTE | 2021-01-12 08:52 | MR_ITS ---
WS: [id number] MRI LUMBAR SPINE NONCONTRAST TECHNIQUE: Sagittal T1, T2 and STIR imaging. Axial T1 and T2 imaging. CLINICAL INFORMATION: M54.16 - Radiculopathy, lumbar region COMPARISON: None. FINDINGS: Mild lumbar curve. No acute compression. No high-grade central canal stenosis. Slight retrolisthesis L3 on L4 and L4 on L5. L1-L2: Normal. L2-L3: Normal. L3-L4: Mild annular bulging with slight effacement of ventral thecal sac. Mild to moderate facet arth ropathy. Spinal canal and foramen are patent. L4-L5: Mild annular bulging with slight effacement of the ventral thecal sac. Mild right and no signi ficant left foraminal narrowing. Mild to moderate facet arthropathy. L5-S1: Mild disc bulging eccentric to the left with slight impingement traversing left S1 nerve root. Mild left and no significant right foraminal narrowing. Moderate facet arthropathy. Visualized pelvic bony structures: Normal. Paravertebral soft tissues: Normal. MR/MR lumbar spine wo con* [id number] IMPRESSION: 1. Mild lumbar curve. No acute compression. No high-grade central canal stenos is. 2. Mild annular bulging L4-5 with slight effacement of ventral thecal sac. Rig ht eccentric disc bulging with encroachment on the far exiting right L4 nerve r oot. 3. Left eccentric disc bulging L5-S1 slightly impinges the traversing left S1 nerve root. Mild left L5-S1 foraminal narrowing. 4. Mild to moderate facet arthropathy L3-L5.
== END 2021-01-12 08:26 | disposition home or self-care (01) ==
PROVIDERS: PCP Nurse Practitioner; Visit Provider Anesthesiology Pain Medicine
DX: M47.816 Spondylosis without myelopathy or radiculopathy, lumbar region (principal); M54.16 Radiculopathy, lumbar region; M51.27 Other intervertebral disc displacement, lumbosacral region; M51.26 Other intervertebral disc displacement, lumbar region
CPT/HCPCS: 72120; 72148

== ENCOUNTER → 2021-01-18 12:51 | Outpatient (BNVA) | payer MEDICARE, OTHER, SELFPAY | PROVIDERS: PCP Nurse Practitioner; Visit Provider Anesthesiology Pain Medicine | DX: M54.16 Radiculopathy, lumbar region (principal); M47.816 Spondylosis without myelopathy or radiculopathy, lumbar region; M79.604 Pain in right leg | CPT/HCPCS: 99214 ==

== ENCOUNTER → 2021-04-12 12:50 | Outpatient (BNVA) | payer MEDICARE, OTHER, SELFPAY | PROVIDERS: PCP Nurse Practitioner; Visit Provider Anesthesiology Pain Medicine | DX: M54.16 Radiculopathy, lumbar region (principal); M47.816 Spondylosis without myelopathy or radiculopathy, lumbar region; M79.604 Pain in right leg | CPT/HCPCS: 99212 ==

== ENCOUNTER 2021-08-13 12:07 | Emergency (ER) | payer MEDICARE, OTHER, SELFPAY ==
[2021-08-13 12:17] VITALS: BP 136/68; PULSE 72; RESP 16; TEMP 36.4; O2SAT 94; BMI 26.5
--- NOTE | 2021-08-13 12:33 | XR_ITS ---
WS: [id number] CHEST XRAY TECHNIQUE: Portable chest. CLINICAL INFORMATION: chest pain/abnormal EKG COMPARISON: December 20, 2020 FINDINGS: Heart: Normal cardiac silhouette. Lungs: Lungs are clear. No consolidation or pleural effusion. No acute pulmonary infiltrates. Bones: Normal visualized bony structures. XR/XR chest 1V portable [id number] IMPRESSION: No acute chest findings
--- NOTE | 2021-08-13 12:38 | PC.NURSE ---
PT PLACED ON CONTINUOUS SPO2, NIBP, AND CM.
--- NOTE | 2021-08-13 12:45 | ED_ITS ---
HPI - Weakness General: Chief complaint: Weakness Stated complaint: chest pain Time Seen by Provider: 08/13/21 12:33 Source: patient Mode of arrival: ambulatory Limitations: no limitations History of Present Illness: 71-year-old male presents to the emergency room with complaint of an abnormal EKG. Patient has diabetes was at his doctor's office seeing midlevel and complained of occasional palpitations they did a EKG and there is a question of ST elevation in V1 and 2 patient has not had any chest pain whatsoever in any time today or in the recent past that he can recall. Not had any shortness of breath chest discomfort lightheadedness dizziness he does feel generally a little bit weak he does occasionally have these palpitations. He has not had any unexplained exertional dyspnea or chest discomfort. He is diabetic. EKG is compared to previously show similar changes. MD Complaint: generalized weakness Location: generalized Severity: mild Relieving factors: none Exacerbating factors: none Associated symptoms: Denies chest pain, chills, confusion, melena, decreased appetite, diaphoresis, dysuria, easy bruising, fever(s), headache(s), myalgias, nausea, rash, short of breath, syncope or vomiting Review of Systems Const: Denies: fever(s), chills or diaphoresis ENMT: Denies: throat pain, ear or mastoid pain, nasal discharge or nasal congestion Card: Denies: chest pain or syncope Resp: Denies: dyspnea, productive cough or non-productive cough GI: Denies: nausea, vomiting or melena : Denies: dysuria Skin/Breast: Denies: rash or pruritus Neuro: Denies: headache(s) or confusion Wan/Lymph: Denies: easy bruising PFSH ED PFSH: Medical History Diabetes mellitus High cholesterol History of high blood pressure Surgical History H/O sinus surgery History of appendectomy History of tonsillectomy Family History Father Cancer Social History Alcohol intake: current Alcohol intake frequency: holidays/special occasions only Physical Exam Const: COMMON NORMALS: no acute distress GENERAL APPEARANCE: cooperative and comfortable ORIENTATION/CONSCIOUSNESS: Yes awake, Yes oriented to person, Yes oriented to place and Yes oriented to time HENMT: COMMON NORMALS: normocephalic, atraumatic and hearing grossly normal bilaterally HEAD & SCALP: normocephalic and atraumatic Eye: COMMON NORMALS: Equal, round and reactive pupils present, EOMs intact bilaterally, conjunctivae normal and no scleral icterus CONJUNCTIVA: Yes conjunctivae normal PUPIL: Yes Equal, round and reactive pupils present Neck/C-Spine: COMMON NORMALS: no JVD Resp: COMMON NORMALS: normal respiratory effort, No retractions, No use of accessory muscles and clear to auscultation bilaterally AUSCULTATION: clear to auscultation bilaterally Cardio: COMMON NORMALS: no JVD, regular rate, regular rhythm and No murmurs present (Cardio) RATE: regular rate RHYTHM: regular rhythm GI: COMMON NORMALS: Soft to palpation and No hepatosplenomegaly present AUSCULTATION: Yes normoactive bowel sounds PALPATION: Yes Soft to palpation, No Tenderness to palpation present (GI), No Guarding due to palpation present (GI) and Yes No hepatosplenomegaly present Extremity: COMMON NORMALS: normal to inspection, capillary refill normal, no clubbing, cyanosis or edema, no calf tenderness and no pedal edema Neuro: SENSORIUM/ORIENTATION: Yes oriented to person, Yes oriented to place and Yes oriented to time Skin: COMMON NORMALS: no rashes or lesions noted GENERAL SKIN EXAM: no rashes or lesions noted Course Vital Signs: Vital signs: Vital Signs Temperature 97.6 F 08/13/21 12:17 Pulse Rate 70 08/13/21 16:07 Respiratory Rate 17 08/13/21 16:07 Blood Pressure 152/89 08/13/21 16:07 Pulse Oximetry 97 08/13/21 16:07 MDM - Weakness Medical Decision Making Patient was sent here by [employer] for abnormal EKG. EKG does not show any acute changes and is similar to previous EKGs reviewed with cardiology ~troponins are negative patient has had no chest pain discharged home follow-up as needed Medical Records I reviewed the patient's medical records. Lab Data I reviewed the patient's lab results. : 08/13/21 12:30 08/13/21 12:30 Radiology Impressions Chest X-Ray 08/13/21 12:33 IMPRESSION: No acute chest findings Laboratory Results WBC 7.3 10^3/uL (4.0-10.0) 08/13/21 12:30 RBC 5.32 10^6/uL (4.1-5.3) H 08/13/21 12:30 Hgb 15.6 g/dL (11.7-16.6) 08/13/21 12:30 Hct 47.9 % (42.0-52.0) 08/13/21 12:30 MCV 90.0 fl (80-94) 08/13/21 12:30 MCH 29.3 pg (28.0-34.0) 08/13/21 12:30 MCHC 32.6 g/dL (30.0-36.0) 08/13/21 12:30 RDW 13.2 % (12.1-15.1) 08/13/21 12:30 Plt Count 179 10^3/cmm (130-400) 08/13/21 12:30 MPV 10.7 fL (7.4-10.4) H 08/13/21 12:30 Neut % (Auto) 71.5 % 08/13/21 12:30 Lymph % (Auto) 16.9 % 08/13/21 12:30 [place] % (Auto) 8.4 % 08/13/21 12:30 Eos % (Auto) 2.3 % 08/13/21 12:30 Baso % (Auto) 0.6 % 08/13/21 12:30 Neut # (Auto) 5.19 10^3/uL (1.8-7.7) 08/13/21 12:30 Lymph # (Auto) 1.2 10^3/uL (0.8-4.8) 08/13/21 12:30 [place] # (Auto) 0.6 10^3/uL (0.2-0.9) 08/13/21 12:30 Eos # (Auto) 0.2 10^3/uL (0.0-0.8) 08/13/21 12:30 Baso # (Auto) 0.0 10^3/uL (0.0-0.1) 08/13/21 12:30 Nucleated RBC % (auto) 0 % 08/13/21 12:30 Nucleated RBCs # 0.0 /100WBC 08/13/21 12:30 Sodium 137 mmol/L (136-145) 08/13/21 12:30 Potassium 4.1 mmol/L (3.5-5.1) 08/13/21 12:30 Chloride 102 mmol/L (98-107) 08/13/21 12:30 Carbon Dioxide 25 mmol/L (22-29) 08/13/21 12:30 Anion Gap 14.1 (5-19) 08/13/21 12:30 BUN 23 mg/dL (8-23) 08/13/21 12:30 Creatinine 1.5 mg/dL (0.7-1.2) H 08/13/21 12:30 GFR Calculation Not Reportable 08/13/21 12:30 Glucose 256 mg/dL (65-115) H 08/13/21 12:30 Calculated Osmolality 296 mOsm/kg (285-295) H 08/13/21 12:30 Calcium 10.2 mg/dL (8.5-10.5) 08/13/21 12:30 Total Bilirubin 0.5 mg/dL (0.15-1.2) 08/13/21 12:30 AST 61 U/L (0-40) H 08/13/21 12:30 ALT 54 U/L (0-41) H 08/13/21 12:30 Alkaline Phosphatase 50 IU/L (40-130) 08/13/21 12:30 Troponin T Baseline 16 ng/L (0-15) H 08/13/21 12:30 Troponin T 120 Minute 14.81 ng/L (0-15) 08/13/21 14:15 Delta Troponin T -1.2 ABS# (0-10) L 08/13/21 14:15 Total Protein 6.9 g/dL (6.6-8.7) 08/13/21 12:30 Albumin 4.5 g/dL (3.5-5.2) 08/13/21 12:30 Globulin 2.4 g/dL (1.3-4.6) 08/13/21 12:30 Discharge Plan Discharge Patient Disposition: Home Clinical Impression: Abnormal ECG Condition: Stable Prescriptions: No Action pantoprazole 40 mg tablet,delayed release (DR/EC) 40 mg PO DAILY 0RF tamsulosin 0.4 mg capsule 0.4 mg PO DAILY 0RF aspirin 81 mg tablet,delayed release (DR/EC) 81 mg PO DAILY 0RF olmesartan [Benicar] 40 mg tablet 40 mg PO DAILY 0RF cetirizine 10 mg capsule 10 mg PO DAILY PRN (Reason: Allergy Symptoms) 0RF Januvia 100 mg tablet 100 mg PO DAILY 0RF glipizide 10 mg tablet 20 mg PO DAILY 0RF cyanocobalamin (vitamin B-12) 3,000 mcg capsule 3,000 mcg PO DAILY 0RF cholecalciferol (vitamin D3) 50 mcg (2,000 unit) capsule 50 mcg PO DAILY 0RF Invokana 100 mg tablet 100 mg PO DAILY 0RF cyclobenzaprine 5 mg tablet 5 mg PO TID PRN (Reason: Muscle Pain) 0RF fenofibrate 160 mg tablet 160 mg PO DAILY 0RF rosuvastatin [Crestor] 20 mg Tablet 20 mg PO DAILY 0RF zolpidem 10 mg tablet 10 mg PO BEDTIME 0RF fluticasone propionate 50 mcg/actuation spray,suspension 2 spray INTRANASAL DAILY 0RF Discharge Orders: Discharge ED (Routine); Ordered 08/13/21 Ordered By: Royce Ahmadi Referrals: Odalys Haney NP [Primary Care Provider] - Discharge Diet: Usual diet Discharge Activity: Resume usual activity Patient Instructions: Opioid Safety Activity Restrictions/Additional Instructions: Follow-up with your primary care doctor Coding Level of Care Code 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
[2021-08-13 12:49] LABS: Basophils % 0.6 %; Eosinophils # 0.2 10^3/uL (0.0-0.8); Eosinophils % 2.3 %; Hematocrit 47.9 % (42.0-52.0); Hemoglobin 15.6 g/dL (11.7-16.6); Lymphocytes # 1.2 10^3/uL (0.8-4.8); Lymphocytes % 16.9 %; Mean Corpuscular HGB Conc 32.6 g/dL (30.0-36.0); Mean Corpuscular Hemoglobin 29.3 pg (28.0-34.0); Mean Platelet Volume 10.7 fL (7.4-10.4); Monocytes # 0.6 10^3/uL (0.2-0.9); Monocytes % 8.4 %; Neutrophils # 5.19 10^3/uL (1.8-7.7); Neutrophils % 71.5 %; Nucleated Red Blood Cells % 0 %; Platelet Count 179 10^3/cmm (130-400); Red Blood Count 5.32 10^6/uL (4.1-5.3); Red Cell Distribution Width 13.2 % (12.1-15.1); White Blood Count 7.3 10^3/uL (4.0-10.0)
[2021-08-13 13:00] VITALS: PULSE 81; RESP 15; O2SAT 94
[2021-08-13 13:34] LABS: Alanine Aminotransferase 54 U/L (0-41); Albumin Level 4.5 g/dL (3.5-5.2); Alkaline Phosphatase 50 IU/L (40-130); Anion Gap 14.1 (5-19); Aspartate Amino Transferase 61 U/L (0-40); Blood Urea Nitrogen 23 mg/dL (8-23); Calcium 10.2 mg/dL (8.5-10.5); Carbon Dioxide 25 mmol/L (22-29); Chloride 102 mmol/L (98-107); Globulin 2.4 g/dL (1.3-4.6); Glucose 256 mg/dL (65-115); Osmolality Calculated 296 mOsm/kg (285-295); Potassium 4.1 mmol/L (3.5-5.1); Sodium 137 mmol/L (136-145); Total Bilirubin 0.5 mg/dL (0.15-1.2); Total Protein 6.9 g/dL (6.6-8.7)
[2021-08-13 13:35] LABS: Troponin(5th) Baseline 16 ng/L (0-15)
[2021-08-13 14:00] VITALS: PULSE 75; RESP 13; O2SAT 94
--- NOTE | 2021-08-13 14:33 | ECG_ITS ---
[facility] Test Date: 2021-08-13 Pat Name: Moustapha Marks Department: Room: Gender: Male Eight Section Blower: : 1950 Requested By: Royce Gibson Order Number: [id number] Nicole MD: Andrea Sahu M.D. Measurements Intervals [place] Rate: 81 P: 71 SC: 220 QRS: -27 QRSD: 122 T: 90 QT: 386 QTc: 449 Interpretive Statements SINUS RHYTHM WITH FIRST DEGREE AV BLOCK WITH OCCASIONAL VENTRICULAR PREMATURE COMPLEXES POSSIBLE RIGHT VENTRICULAR CONDUCTION DELAY [RSR (QR) IN V1/V2] LEFT VENTRICULAR HYPERTROPHY AND ST-T CHANGE [VOLTAGE CRITERIA PLUS ST/T ABNORMALITY] POSSIBLE SEPTAL MYOCARDIAL INFARCTION , OF INDETERMINATE AGE [30 ms Q WAVE IN V1/V2] Compared to ECG 12/20/2020 21:37:26 Ventricular premature complex(es) now present Left-axis deviation no longer present Incomplete right bundle-branch block no longer present ST (T wave) deviation still present Myocardial infarct finding still present Electronically Signed On 08-14-2021 9:23:56 CDT by Andrea Sahu M.D. [id number]
[2021-08-13 15:00] VITALS: PULSE 72; RESP 16; O2SAT 97
[2021-08-13 15:32] LABS: Troponin 5 2HR 14.81 ng/L (0-15)
[2021-08-13 16:07] VITALS: BP 152/89; PULSE 70; RESP 17; O2SAT 97
[2021-08-13 17:12] LABS: Troponin 5 2HR Delta -1.2 ABS# (0-10)
--- NOTE | 2021-08-13 18:33 | ECG_ITS ---
[facility] Test Date: 2021-08-13 Pat Name: Moustapha Marks Department: Room: Gender: Male Medical Records Specialist: : [id number] Requested By: Royce Gibson Order Number: [id number] Reading MD: Andrea Sahu M.D. Measurements Intervals [place] Rate: 80 P: 69 NV: 224 QRS: -26 QRSD: 121 T: 93 QT: 383 QTc: 442 Interpretive Statements SINUS RHYTHM WITH FIRST DEGREE AV BLOCK POSSIBLE RIGHT VENTRICULAR CONDUCTION DELAY [RSR (QR) IN V1/V2] LEFT VENTRICULAR HYPERTROPHY AND ST-T CHANGE [VOLTAGE CRITERIA PLUS ST/T ABNORMALITY] POSSIBLE SEPTAL MYOCARDIAL INFARCTION , OF INDETERMINATE AGE [30 ms Q WAVE IN V1/V2] Compared to ECG 08/13/2021 12:20:10 Ventricular premature complex(es) no longer present ST (T wave) deviation still present Myocardial infarct finding still present Electronically Signed On 08-14-2021 9:24:04 CDT by Andrea Sahu M.D. [email or web address]
== END 2021-08-13 16:12 | disposition home or self-care (01) ==
PROVIDERS: Emergency Provider Family Medicine; PCP Nurse Practitioner
DX: R94.31 Abnormal electrocardiogram [ECG] [EKG] (principal); E11.9 Type 2 diabetes mellitus without complications; Z79.82 Long term (current) use of aspirin; Z79.84 Long term (current) use of oral hypoglycemic drugs
CPT/HCPCS: 71045; 80053; 84484; 85025; 93005; 99283

== ENCOUNTER → 2022-03-25 11:02 | Outpatient (BNVA) | payer MEDICARE, OTHER, SELFPAY | PROVIDERS: PCP Nurse Practitioner; Visit Provider Podiatrist Foot & Ankle Surgery | DX: M77.42 Metatarsalgia, left foot (principal); M24.572 Contracture, left ankle; E11.9 Type 2 diabetes mellitus without complications | CPT/HCPCS: 73620; 73630; 99204 ==

== ENCOUNTER 2022-05-31 09:49 | Outpatient (CLI) | payer MEDICARE, OTHER, SELFPAY ==
[2022-05-31 10:49] LABS: Alanine Aminotransferase 15 U/L (0-41); Albumin Level 4.3 g/dL (3.5-5.2); Alkaline Phosphatase 36 U/L (40-130); Anion Gap 14.6 (5-19); Aspartate Amino Transferase 16 U/L (0-40); Blood Urea Nitrogen 15 mg/dL (8-23); Carbon Dioxide 27 mmol/L (22-29); Chloride 102 mmol/L (98-107); Globulin 2.8 g/dL (1.3-4.6); Glucose 166 mg/dL (65-115); Osmolality Calculated 295 mOsm/kg (285-295); Potassium 3.6 mmol/L (3.5-5.1); Sodium 140 mmol/L (136-145); Total Bilirubin 0.5 mg/dL (0.15-1.2); Total Protein 7.1 g/dL (6.6-8.7)
== END 2022-05-31 09:50 | disposition home or self-care (01) ==
LOC: LAB 09:52
PROVIDERS: PCP Nurse Practitioner; Visit Provider Podiatrist Foot & Ankle Surgery
DX: B35.1 Tinea unguium (principal); M77.42 Metatarsalgia, left foot; M79.672 Pain in left foot; M24.572 Contracture, left ankle; E11.9 Type 2 diabetes mellitus without complications
CPT/HCPCS: 80053; 99214

== ENCOUNTER → 2022-07-02 11:10 | Outpatient (BNVA) | payer MEDICARE, OTHER, SELFPAY | PROVIDERS: PCP Nurse Practitioner; Visit Provider Podiatrist Foot & Ankle Surgery | DX: B35.1 Tinea unguium (principal); E11.9 Type 2 diabetes mellitus without complications; M77.42 Metatarsalgia, left foot; M24.572 Contracture, left ankle | CPT/HCPCS: 36415; 80053; 99214 ==

== ENCOUNTER → 2022-08-13 12:23 | Outpatient (BNVA) | payer MEDICARE, OTHER, SELFPAY | PROVIDERS: PCP Nurse Practitioner; Visit Provider Podiatrist Foot & Ankle Surgery | DX: B35.1 Tinea unguium (principal) | CPT/HCPCS: 99213 ==

== ENCOUNTER 2022-10-04 08:48 | Outpatient (CLI) | payer MEDICARE, OTHER, SELFPAY ==
--- NOTE | 2022-10-04 08:56 | CT_ITS ---
WS: [id number] CT ABDOMEN AND PELVIS WITH CONTRAST HISTORY: Abnormal WEIGHT LOSS TECHNIQUE: Imaging performed of the abdomen and pelvis with IV contrast. Single phase imaging of the abdomen. Coronal and sagittal reformats are submitted. All CT scans at [facility] use at [facility] one of these dose optimization techniques: automated exposure control; mA and/or kV adjustment per patient size (includes targeted exams where dose is matched to clinical indication); or iterative re construction. IV CONTRAST: Omnipaque 350; 100 mL IV. Oral contrast: Yes. DLP: 585.03 mGy.cm COMPARISON: None available. Lower thorax: Lung bases are clear. Heart is normal size. No hiatal hernia. Liver/biliary system: Normal size with no intrahepatic dilatation. Granuloma. Gallbladder: Normal. No gallstones or wall thickening. No pericholecystic fluid. Pancreas: Normal size pancreas and pancreatic duct. No adjacent inflammation. Spleen: Normal spleen with numerous granulomata. Adrenal glands: Normal. Right kidney: Normal. Left kidney: Normal size. There are a few cortical hypodensities which are too small to characterize but probably benign cysts. No obstruction. Aorta: Mild atherosclerosis with no aneurysm. Lymphadenopathy: None. Free fluid: None. GI tract: Small amount of oral contrast in the stomach. There is mild diffuse stomach wall thickening which could be due to underdistention. No small bowel obstruction. Prior appendectomy. There is mild soft tissue distention of the cecum which is asymmetric to the remaining colon. This area does not s ignificantly enhance but the fecal material and air is being displaced laterally. Suspicious for unde rlying neoplasm. Mildly tortuous overlapping loops of colon. There are a few scattered diverticula wi thout acute diverticulitis. Abdominal wall: Unremarkable abdominal wall. No hernia. Pelvis: Mildly distended urinary bladder. There is marked enlargement and heterogeneity of the prosta te gland. Prostate measures 6.1 x 5.6 x 6.7 cm. Prostate encroaches into the urinary bladder. There i s also bladder wall thickening which is probably due to long standing outlet obstruction. Marked thic kening of the seminal vesicles. Bones: No destructive bone lesions. CT/CT abdomen pelvis w con* [id number] IMPRESSION: 1. Increased, nonenhancing soft tissue distending the cecum. May be fecal rete ntion but neoplasm needs to be excluded. No adjacent adenopathy. If colonoscopy has not been recently performed this should be obtained. 2. Marked enlargement and heterogeneity of the prostate gland encroaching into the urinary bladder. Evaluate biochemically for prostate cancer. 3. Prior cholecystectomy. 4. Hepatic and splenic granulomata. 5. There is moderate diffuse thickening of the stomach wall. May be due to und erdistention. If further evaluation is necessary of the stomach upper endoscopy may be appropriate.
[2022-10-04] MEDS: iohexol 350 mg/mL 500 mL Btl (per mL) IV (09:19)
[2022-10-04] MEDS: iohexol 350 mg/mL 500 mL Btl (per mL) PO (09:20)
[2022-10-04 10:17] LABS: Blood Urea Nitrogen 18 mg/dL (8-23)
== END 2022-10-04 08:49 | disposition home or self-care (01) ==
PROVIDERS: PCP Nurse Practitioner; Visit Provider Nurse Practitioner
DX: R63.4 Abnormal weight loss (principal); R11.0 Nausea; E11.9 Type 2 diabetes mellitus without complications; Z90.49 Acquired absence of other specified parts of digestive tract
CPT/HCPCS: 74177; 82565; 84520; Q9967

== ENCOUNTER 2022-10-14 08:05 | Outpatient (CLI) | payer MEDICARE, OTHER, SELFPAY ==
--- NOTE | 2022-10-14 08:15 | MR_ITS ---
WS: [id number] MRI ORBITs with and without CONTRAST. COMPARISON: None Multiplanar, multisequence imaging is performed with and without contrast. Post MultiHance 20 mL IV. History: Fell out of bed. Redness and blood LEFT eye. History of cataract surgery. No diffusion abnormality. No evidence for an acute infarct. There is no hydrocephalus or extra-axial fluid collection. No acute blood products. No hydrocephalus. Only mild cerebral atrophy and small ve ssel ischemic disease. No prior large territory infarct. Orbits and globes are unremarkable. No displacement of the extraocular muscles. Optic nerve is normal . Pre and post septal soft tissues are normal. Globes are normal size and signal. Post cataract surge ry by MRI appears unremarkable. Normal paranasal sinuses. Normal mastoid air cells. MR/MR orbit face neck wo/w* [id number] IMPRESSION: 1. Negative MRI of orbits. Orbits and globes are negative. No mass or hematoma . 2. Mild cerebral atrophy and small vessel ischemic disease. 3. No masses.
[2022-10-14] MEDS: gadobenate dimeglumine 20 mL vial IV (09:18)
[2022-10-14 10:29] LABS: Basophils % 0.6 %; Eosinophils # 0.1 10^3/uL (0.0-0.8); Eosinophils % 2.5 %; Hematocrit 44.6 % (42.0-52.0); Hemoglobin 14.8 g/dL (11.7-16.6); Lymphocytes # 1.2 10^3/uL (0.8-4.8); Lymphocytes % 24.2 %; Mean Corpuscular HGB Conc 33.2 g/dL (30.0-36.0); Mean Corpuscular Hemoglobin 29.8 pg (28.0-34.0); Mean Corpuscular Volume 89.9 fl (80-94); Mean Platelet Volume 10.3 fL (7.4-10.4); Monocytes # 0.4 10^3/uL (0.2-0.9); Monocytes % 8.2 %; Neutrophils # 3.06 10^3/uL (1.8-7.7); Neutrophils % 64.3 %; Nucleated Red Blood Cells % 0 %; Platelet Count 151 10^3/cmm (130-400); Red Blood Count 4.96 10^6/uL (4.1-5.3); White Blood Count 4.8 10^3/uL (4.0-10.0)
[2022-10-14 10:45] LABS: Erythrocyte Sedimentation Rate 3 mm/hr (0-10)
== END 2022-10-14 08:06 | disposition home or self-care (01) ==
PROVIDERS: PCP Nurse Practitioner; Visit Provider Student in an Organized Health Care Education/Training Program
DX: H46.9 Unspecified optic neuritis (principal)
CPT/HCPCS: 36415; 70543; 85025; 85651; A9577

== ENCOUNTER 2022-10-17 14:51 | Outpatient (CLI) | payer MEDICARE, OTHER, SELFPAY ==
[2022-10-21 12:15] LABS: 30 KD IGG NON-REACTIVE; Lymes IGM WB 1.55 index
[2022-10-21 19:29] LABS: Bartonella Henselae IgG AB Negative
== END 2022-10-17 14:52 | disposition home or self-care (01) ==
PROVIDERS: PCP Nurse Practitioner; Visit Provider Student in an Organized Health Care Education/Training Program
DX: Z01.89 Encounter for other specified special examinations (principal)
CPT/HCPCS: 86611; 86617

== ENCOUNTER → 2023-05-08 12:25 | Outpatient (BNVA) | payer MEDICARE, OTHER, SELFPAY | PROVIDERS: PCP Nurse Practitioner; Visit Provider Emergency Medicine | DX: R10.9 Unspecified abdominal pain (principal); R31.29 Other microscopic hematuria | CPT/HCPCS: 81000; 87086 ==

== ENCOUNTER → 2023-05-27 12:37 | Outpatient (BNVA) | payer MEDICARE, OTHER, SELFPAY | PROVIDERS: PCP Nurse Practitioner; Visit Provider Nurse Practitioner Family | DX: R39.9 Unspecified symptoms and signs involving the genitourinary system (principal); M54.6 Pain in thoracic spine | CPT/HCPCS: 81000 ==

== ENCOUNTER → 2023-06-11 09:29 | Outpatient (BNVA) | payer MEDICARE, OTHER, SELFPAY | PROVIDERS: PCP Nurse Practitioner; Referring Provider Nurse Practitioner; Visit Provider Nurse Practitioner | DX: E11.9 Type 2 diabetes mellitus without complications (principal); Z20.2 Contact with and (suspected) exposure to infections with a predominantly sexual mode of transmission; Z79.899 Other long term (current) drug therapy | CPT/HCPCS: 80053; 80061; 83036; 85025; 87491; 87591; 87806 ==

== ENCOUNTER → 2023-07-21 14:09 | Outpatient (BNVA) | payer MEDICARE, OTHER, SELFPAY | PROVIDERS: PCP Nurse Practitioner; Visit Provider Nurse Practitioner | DX: R05.9 Cough, unspecified (principal) | CPT/HCPCS: 71046 ==

== ENCOUNTER → 2023-09-24 09:35 | Outpatient (BNVA) | payer MEDICARE, OTHER, SELFPAY | PROVIDERS: PCP Nurse Practitioner; Visit Provider Nurse Practitioner | DX: E11.9 Type 2 diabetes mellitus without complications (principal); E78.00 Pure hypercholesterolemia, unspecified | CPT/HCPCS: 80053; 82962; 83036 ==

== ENCOUNTER → 2024-01-09 10:47 | Outpatient (BNVA) | payer MEDICARE, OTHER, SELFPAY | PROVIDERS: PCP Nurse Practitioner; Visit Provider Nurse Practitioner | DX: E11.9 Type 2 diabetes mellitus without complications (principal) | CPT/HCPCS: 83036 ==

== ENCOUNTER → 2024-01-17 11:24 | Outpatient (BNVA) | payer MEDICARE, OTHER, SELFPAY | PROVIDERS: PCP Nurse Practitioner; Visit Provider Nurse Practitioner Family | DX: N39.0 Urinary tract infection, site not specified (principal) | CPT/HCPCS: 81000 ==

== ENCOUNTER → 2024-02-02 10:28 | Outpatient (BNVA) | payer MEDICARE, OTHER, SELFPAY | PROVIDERS: PCP Nurse Practitioner; Referring Provider Nurse Practitioner; Visit Provider Internal Medicine | DX: E11.9 Type 2 diabetes mellitus without complications (principal) | CPT/HCPCS: 36415; 80053; 84681; 86337; 86341 ==

== ENCOUNTER → 2024-02-20 09:44 | Outpatient (BNVA) | payer MEDICARE, OTHER, SELFPAY | PROVIDERS: PCP Nurse Practitioner; Visit Provider Internal Medicine | DX: E11.9 Type 2 diabetes mellitus without complications (principal); E78.00 Pure hypercholesterolemia, unspecified; Z79.84 Long term (current) use of oral hypoglycemic drugs; Z79.4 Long term (current) use of insulin | CPT/HCPCS: 99214 ==

== ENCOUNTER 2024-03-31 11:12 | Outpatient (CLI) | payer MEDICARE, OTHER, SELFPAY ==
[2024-03-31 12:26] LABS: Estmated Average Glucose 243; Hemoglobin A1C 10.1 % (4.0-6.0)
[2024-03-31 12:31] LABS: Alanine Aminotransferase 18 U/L (0-41); Albumin Level 4.3 g/dL (3.5-5.2); Alkaline Phosphatase 43 U/L (40-130); Anion Gap 15.8 (5-19); Aspartate Amino Transferase 20 U/L (0-40); Blood Urea Nitrogen 14 mg/dL (8-23); Calcium 9.6 mg/dL (8.5-10.5); Carbon Dioxide 24 mmol/L (22-29); Chloride 101 mmol/L (98-107); Chol HDL Ratio 3.19 mg/dL (1.0-5.00); Cholesterol 153 mg/dL (0-200); Globulin 2.9 g/dL (1.3-4.6); Glucose 209 mg/dL (65-115); HDL Cholesterol 48 mg/dL (60-100); LDL Cholesterol Calculated 78 mg/dL (50-129); LDL HDL Ratio 1.63 RATIO (0.00-3.22); Osmolality Calculated 291 mOsm/kg (285-295); Potassium 3.8 mmol/L (3.5-5.1); Sodium 137 mmol/L (136-145); Total Bilirubin 0.5 mg/dL (0.15-1.2); Total Protein 7.2 g/dL (6.6-8.7); Triglycerides 136 mg/dL (0-150)
[2024-03-31 12:38] LABS: Creatinine Urine, Random 93 mg/dL (39-259); Microalbumin Random Urine 6 ug/dL (0-20)
[2024-03-31 12:39] LABS: Microalbum Creatinine Ratio Ur 65 mg/dL (0-20)
== END 2024-03-31 11:13 | disposition home or self-care (01) ==
LOC: LAB 11:14
PROVIDERS: PCP Nurse Practitioner; Visit Provider Internal Medicine
DX: E11.9 Type 2 diabetes mellitus without complications (principal); E78.00 Pure hypercholesterolemia, unspecified
CPT/HCPCS: 36415; 80053; 80061; 82044; 83036

== ENCOUNTER → 2024-04-02 07:54 | Outpatient (BNVA) | payer MEDICARE, OTHER, SELFPAY | PROVIDERS: PCP Nurse Practitioner; Visit Provider Internal Medicine | DX: E78.00 Pure hypercholesterolemia, unspecified; E11.65 Type 2 diabetes mellitus with hyperglycemia; Z79.4 Long term (current) use of insulin | CPT/HCPCS: 99214 ==

== ENCOUNTER 2024-06-28 07:46 | Outpatient (CLI) | payer MEDICARE, OTHER, SELFPAY ==
[2024-06-28 08:52] LABS: Alanine Aminotransferase 20 U/L (0-41); Albumin Level 4.2 g/dL (3.5-5.2); Alkaline Phosphatase 41 U/L (40-130); Anion Gap 14.7 (5-19); Aspartate Amino Transferase 22 U/L (0-40); Blood Urea Nitrogen 14 mg/dL (8-23); Calcium 9.4 mg/dL (8.5-10.5); Carbon Dioxide 25 mmol/L (22-29); Chloride 105 mmol/L (98-107); Chol HDL Ratio 3.14 mg/dL (1.0-5.00); Cholesterol 138 mg/dL (0-200); Globulin 2.8 g/dL (1.3-4.6); Glucose 204 mg/dL (65-115); HDL Cholesterol 44 mg/dL (60-100); LDL Cholesterol Calculated 73 mg/dL (50-129); LDL HDL Ratio 1.66 RATIO (0.00-3.22); Osmolality Calculated 298 mOsm/kg (285-295); Potassium 3.7 mmol/L (3.5-5.1); Sodium 141 mmol/L (136-145); Total Bilirubin 0.5 mg/dL (0.15-1.2); Triglycerides 103 mg/dL (0-150)
[2024-06-28 08:54] LABS: Creatinine Urine, Random 96 mg/dL (39-259); Microalbumin Random Urine 7 ug/dL (0-20)
[2024-06-28 08:58] LABS: Microalbum Creatinine Ratio Ur 73 mg/dL (0-20)
[2024-06-28 08:58] LABS: Estmated Average Glucose 212
== END 2024-06-28 07:47 | disposition home or self-care (01) ==
LOC: LAB 07:46
PROVIDERS: PCP Nurse Practitioner; Visit Provider Internal Medicine
DX: E11.9 Type 2 diabetes mellitus without complications (principal)
CPT/HCPCS: 36415; 80053; 80061; 82044; 83036

== ENCOUNTER → 2024-07-02 09:57 | Outpatient (BNVA) | payer MEDICARE, OTHER, SELFPAY | PROVIDERS: PCP Nurse Practitioner; Visit Provider Internal Medicine | DX: E11.9 Type 2 diabetes mellitus without complications (principal); E78.00 Pure hypercholesterolemia, unspecified | CPT/HCPCS: 99214 ==

== ENCOUNTER 2024-09-22 08:48 | Outpatient (CLI) | payer MEDICARE, OTHER, SELFPAY ==
[2024-09-22 09:55] LABS: Estmated Average Glucose 209; Hemoglobin A1C 8.9 % (4.0-6.0)
[2024-09-22 10:01] LABS: Alanine Aminotransferase 14 U/L (0-41); Albumin Level 4.4 g/dL (3.5-5.2); Alkaline Phosphatase 46 U/L (40-130); Aspartate Amino Transferase 19 U/L (0-40); Blood Urea Nitrogen 15 mg/dL (8-23); Calcium 10.1 mg/dL (8.5-10.5); Carbon Dioxide 26 mmol/L (22-29); Chloride 102 mmol/L (98-107); Chol HDL Ratio 3.33 mg/dL (1.0-5.00); Cholesterol 160 mg/dL (0-200); Globulin 3.5 g/dL (1.3-4.6); Glucose 181 mg/dL (65-115); HDL Cholesterol 48 mg/dL (60-100); LDL Cholesterol Calculated 85 mg/dL (50-129); LDL HDL Ratio 1.77 RATIO (0.00-3.22); Osmolality Calculated 293 mOsm/kg (285-295); Sodium 139 mmol/L (136-145); Total Bilirubin 0.4 mg/dL (0.15-1.2); Total Protein 7.9 g/dL (6.6-8.7); Triglycerides 134 mg/dL (0-150)
[2024-09-22 10:10] LABS: Creatinine Urine, Random 95 mg/dL (39-259); Microalbumin Random Urine 8 ug/dL (0-20)
[2024-09-22 10:14] LABS: Microalbum Creatinine Ratio Ur 84 mg/dL (0-20)
== END 2024-09-22 08:49 | disposition home or self-care (01) ==
LOC: LAB 08:51
PROVIDERS: PCP Nurse Practitioner; Visit Provider Internal Medicine
DX: E11.9 Type 2 diabetes mellitus without complications (principal); E78.00 Pure hypercholesterolemia, unspecified
CPT/HCPCS: 36415; 80053; 80061; 82044; 83036

== ENCOUNTER → 2024-09-30 09:34 | Outpatient (BNVA) | payer MEDICARE, OTHER, SELFPAY | PROVIDERS: PCP Nurse Practitioner; Visit Provider Internal Medicine | DX: E11.9 Type 2 diabetes mellitus without complications (principal); E78.00 Pure hypercholesterolemia, unspecified | CPT/HCPCS: 99214 ==

== ENCOUNTER → 2024-11-08 08:40 | Outpatient (BNVA) | payer MEDICARE, OTHER, SELFPAY | PROVIDERS: PCP Nurse Practitioner; Visit Provider Nurse Practitioner Family | DX: D22.5 Melanocytic nevi of trunk (principal); L81.4 Other melanin hyperpigmentation; L57.8 Other skin changes due to chronic exposure to nonionizing radiation; L82.1 Other seborrheic keratosis; Q83.3 Accessory nipple; L82.0 Inflamed seborrheic keratosis; Z78.9 Other specified health status; R58 Hemorrhage, not elsewhere classified; L53.8 Other specified erythematous conditions; R20.8 Other disturbances of skin sensation; L29.89 Other pruritus; L57.0 Actinic keratosis | CPT/HCPCS: 17000; 17110; 99203 ==

== ENCOUNTER → 2024-11-25 09:12 | Outpatient (BNVA) | payer MEDICARE, OTHER, SELFPAY | PROVIDERS: PCP Nurse Practitioner; Visit Provider Nurse Practitioner | DX: R19.7 Diarrhea, unspecified (principal) | CPT/HCPCS: 87045; 87427; 87449; 87493 ==

== ENCOUNTER 2025-01-04 08:07 | Outpatient (CLI) | payer MEDICARE, OTHER, SELFPAY ==
[2025-01-04 09:24] LABS: Alanine Aminotransferase 18 U/L (0-41); Albumin Level 4.4 g/dL (3.5-5.2); Alkaline Phosphatase 44 U/L (40-130); Anion Gap 11.0 (5-19); Aspartate Amino Transferase 22 U/L (0-40); Blood Urea Nitrogen 16 mg/dL (8-23); Calcium 10.0 mg/dL (8.5-10.5); Carbon Dioxide 30 mmol/L (22-29); Chloride 101 mmol/L (98-107); Cholesterol 147 mg/dL (0-200); Globulin 3.3 g/dL (1.3-4.6); Glucose 174 mg/dL (65-115); HDL Cholesterol 50 mg/dL (60-100); Osmolality Calculated 291 mOsm/kg (285-295); Potassium 4.0 mmol/L (3.5-5.1); Sodium 138 mmol/L (136-145); Total Protein 7.7 g/dL (6.6-8.7); Triglycerides 91 mg/dL (0-150)
[2025-01-04 09:35] LABS: Creatinine Urine, Random 82 mg/dL (39-259)
[2025-01-04 09:41] LABS: Microalbum Creatinine Ratio Ur 85 mg/dL (0-20)
[2025-01-04 11:03] LABS: Estmated Average Glucose 189; Hemoglobin A1C 8.2 % (4.0-6.0)
== END 2025-01-04 08:08 | disposition home or self-care (01) ==
LOC: LAB 08:10
PROVIDERS: PCP Nurse Practitioner; Visit Provider Internal Medicine
DX: E78.00 Pure hypercholesterolemia, unspecified (principal); E11.9 Type 2 diabetes mellitus without complications
CPT/HCPCS: 36415; 80053; 80061; 82044; 83036

== ENCOUNTER → 2025-01-06 10:22 | Outpatient (BNVA) | payer MEDICARE, OTHER, SELFPAY | PROVIDERS: PCP Nurse Practitioner; Visit Provider Internal Medicine | DX: E11.9 Type 2 diabetes mellitus without complications (principal); E78.00 Pure hypercholesterolemia, unspecified | CPT/HCPCS: 99214 ==

== ENCOUNTER → 2025-04-29 09:28 | Outpatient (BNVA) | payer MEDICARE, OTHER, SELFPAY | PROVIDERS: PCP Nurse Practitioner; Visit Provider Nurse Practitioner | DX: E11.9 Type 2 diabetes mellitus without complications (principal) | CPT/HCPCS: 80053; 80061; 83036 ==